=== PATIENT | female | born 1990 | race Caucasian/White ===

== ENCOUNTER 2024-07-07 12:03 | Inpatient (IN) | payer OTHER ==
[2024-07-07 13:09] VITALS: BMI 20.5
[2024-07-07] MEDS ORDERED: BENZONATATE 200 MG CAPSULE PO PRN (13:14)
[2024-07-07] MEDS ORDERED: BENZOCAINE/MENTHOL (CHLORASEPTIC ) LOZENGE MM PRN (13:14)
[2024-07-07] MEDS ORDERED: IBUPROFEN 600 MG TABLET (FP) PO PRN (13:14)
[2024-07-07] MEDS ORDERED: guaiFENesin 600 MG TABLET.ER (FP) PO PRN (13:14)
[2024-07-07] MEDS ORDERED: MAGNESIUM HYDROX 2400MG/30ML ORAL SUSPENSION 30 ML CUP PO PRN (13:14)
[2024-07-07] MEDS ORDERED: MAG HYDROX/AL HYDROX/SIMETH 30 ML UNIT-DOSE CUP PO PRN (13:14)
[2024-07-07] MEDS ORDERED: ONDANSETRON *ODT* 4 MG TABLET SL PRN (13:14)
[2024-07-07] MEDS ORDERED: NALOXONE (NARCAN) HCL 4 MG/0.1 ML SPRAY NS PRN (13:14)
[2024-07-07] MEDS ORDERED: ACETAMINOPHEN 325 MG TABLET (FP) PO PRN (13:14)
[2024-07-07] MEDS ORDERED: IBUPROFEN 400 MG TABLET (FP) PO PRN (13:14)
[2024-07-07] MEDS ORDERED: BISMUTH SUBSALICYLATE 262 MG/15 ML BTL PO PRN (13:14)
[2024-07-07] MEDS ORDERED: POLYETHYLENE GLYCOL (HEALTHYLAX) 3350 17 GM PACKET PO PRN (13:14)
[2024-07-07] MEDS ORDERED: DICYCLOMINE HCL 10 MG CAPSULE PO PRN (13:14)
[2024-07-07] MEDS ORDERED: LOPERAMIDE HCL 2 MG CAPSULE PO PRN (13:14)
[2024-07-07] MEDS: methaDONE HCL 10 MG TABLET PO ONE (14:51)
[2024-07-07] MEDS ORDERED: methaDONE HCL 10 MG TABLET PO PRN (16:41)
[2024-07-07] MEDS: hydrOXYzine PAMOATE 25 MG CAPSULE (FP) PO PRN (17:33)
[2024-07-07] MEDS: cloNIDine HCL 0.1 MG TABLET PO SCH (17:33)
[2024-07-07] MEDS: MELATONIN 5 MG TABLETS PO SCH (22:24)
[2024-07-07] MEDS: THIAMINE 100 MG TABLET PO SCH (22:24)
[2024-07-07] MEDS: METHOCARBAMOL 500 MG TABLET PO PRN (22:24)
[2024-07-07] MEDS: diazePAM 5 MG TABLET PO SCH (22:24)
[2024-07-08] MEDS: NICOTINE POLACRILEX 2 MG GUM BUC PRN (08:29)
[2024-07-08 09:46] LABS: HEMATOCRIT 36.7 % (32.4-45.2); HEMOGLOBIN 11.4 GM/dL (10.7-15.3); MCH 22.9 pg (25.7-33.7); MEAN CELL VOLUME 74.1 fl (80-96); MEAN PLT VOLUME 9.2 fl (7.5-11.1); PLATELET COUNT 209 10^3/uL (134-434); RBC 4.95 M/mm3 (3.60-5.2); WHITE BLOOD COUNT 4.6 K/mm3 (4.0-10.0)
[2024-07-08 10:16] LABS: POTASSIUM 4.4 mmol/L (3.5-5.1)
[2024-07-08 10:18] LABS: ALBUMIN 3.2 g/dl (3.4-5.0); CALCIUM 8.8 mg/dL (8.5-10.1)
[2024-07-08] MEDS: PRENATAL VITAMINS W/ FOLIC ACID TABLET (FP) PO SCH (10:18)
[2024-07-08] MEDS: methaDONE 40 MG, methaDONE 10 MG PO ONE (10:20)
[2024-07-08 10:21] LABS: CREATININE 0.6 mg/dL (0.55-1.3)
[2024-07-08 10:23] LABS: BILIRUBIN,TOTAL 0.3 mg/dL (0.2-1)
[2024-07-08] MEDS: FLU VACCINE (FLULAVAL) PF 45 MCG/0.5 ML SYRINGE 2024-2025 IM ONE (11:44)
[2024-07-08] MEDS: GABAPENTIN 100 MG CAPSULE PO SCH (14:53)
[2024-07-08] MEDS: QUEtiapine FUMARATE 50 MG TABLET PO SCH (22:11)
[2024-07-09] MEDS ORDERED: cloNIDine HCL 0.1 MG TABLET PO PRN
[2024-07-09] MEDS: diazePAM 5 MG TABLET PO SCH (05:44)
[2024-07-09] MEDS: methaDONE 40 MG, methaDONE 20 MG PO ONE (09:49)
[2024-07-09] MEDS: diazePAM 5 MG TABLET PO PRN (09:53)
[2024-07-09] MEDS: PENICILLIN G BENZATHINE 2,400,000 UNIT/4 ML PFS IM ONE (17:55)
[2024-07-10] MEDS: diazePAM 5 MG TABLET PO SCH (05:51)
[2024-07-10] MEDS: methaDONE 40 MG, methaDONE 30 MG PO ONE (09:01)
[2024-07-10 15:03] LABS: HIV INTERPRETATION NEGATIVE (NEGATIVE)
[2024-07-10] MEDS: hydrOXYzine PAMOATE 25 MG CAPSULE (FP) PO PRN (22:16)
[2024-07-11] MEDS: diazePAM 5 MG TABLET PO ONE ×2 (05:51→13:50)
[2024-07-11] MEDS: methaDONE HCL 40 MG DISPERSABLE TABLET PO ONE (09:34)
[2024-07-11] MEDS: NALOXONE (NYS OPIOID OVERDOSE PROGRAM) 4 MG/0.1 ML SPRAY NS SCH (10:40)
[2024-07-12 06:58] VITALS: BP 115/64; PULSE 72; RESP 17; TEMP 97.2
[2024-07-12] MEDS: methaDONE 80 MG, methaDONE 10 MG PO ONE (10:07)
== END 2024-07-12 12:10 | disposition home or self-care (01) | DRG 773 ==
LOC: YASAS 12:03 → Y6N 14:12
PROVIDERS: ADMIT Allergy & Immunology; ATTEND Surgery
PROC: HZ2ZZZZ Detoxification Services for Substance Abuse Treatment (ICD-10-PCS; principal; 2024-07-07)
DX: F11.23 Opioid dependence with withdrawal (principal); F13.20 Sedative, hypnotic or anxiolytic dependence, uncomplicated; F14.20 Cocaine dependence, uncomplicated; F17.210 Nicotine dependence, cigarettes, uncomplicated; F31.9 Bipolar disorder, unspecified; F41.9 Anxiety disorder, unspecified; A53.9 Syphilis, unspecified; R76.8 Other specified abnormal immunological findings in serum; Z59.00 Homelessness unspecified
CPT/HCPCS: 36415; 80053; 85027; 86593; 86780; 87389; 90656; 93005; 93010; G0008